=== PATIENT | male | born 1990 | race Caucasian/White ===

== ENCOUNTER → 2022-11-18 | Outpatient (CLI) | payer BC | LOC: CARDFS 14:55 | PROVIDERS: ATTEND Internal Medicine | DX: R00.2 Palpitations (principal); R07.89 Other chest pain | CPT/HCPCS: 93306 ==

== ENCOUNTER → 2022-11-19 | Outpatient (CLI) | payer BC | LOC: CARD 07:50 | PROVIDERS: ATTEND Nurse Practitioner Family | DX: R00.2 Palpitations (principal); R07.89 Other chest pain | CPT/HCPCS: 93225; 93226 ==

== ENCOUNTER 2023-03-23 07:57 | Outpatient (CLI) | payer BC | END 2023-03-23 08:30 | LOC: SLEEP 07:57 | PROVIDERS: ATTEND Internal Medicine Cardiovascular Disease | DX: G47.33 Obstructive sleep apnea (adult) (pediatric) (principal); R06.83 Snoring; G47.36 Sleep related hypoventilation in conditions classified elsewhere; I10 Essential (primary) hypertension | CPT/HCPCS: G0399 ==

== ENCOUNTER → 2023-03-30 | Outpatient (CLI) | payer BC ==
[2023-03-30 13:32] VITALS: BP_SYST 143
--- NOTE | 2023-03-30 13:32 | Cardiology Stress Test Report ---
Stress Test Report Date of Procedure/Referring: Date of Procedure: Mar 30, 2023 PCP Vinayak Royal Aprn Admitting Physician Admitting Physician: Attending Physician: Adrien Callejas MD Indications: CP Baseline Heart Rate: 70 Baseline Blood Pressure: Blood Pressure Systolic: 143 Baseline EKG: Baseline EK Summary/Conclusion: Summary: In summary, the patient started exercising with a baseline heart rate, blood pressure and EKG mentioned above Patient was able to exercise for a total of 8 minutes on Manas protocol, METs 88 Maximum heart rate 165 Maximum blood pressure 204/77 Stress EKG, Minimal nondiagnostic changes Recovery EKG , Return to baseline Conclusion: 1. Good exercise tolerance for a total of 8 minutes on Manas protocol, 9.7 METs, achieving 88 percent of maximum expected heart rate 2. Minimal nondiagnostic EKG changes with exercise returned to baseline during recovery 3. No arrhythmia was noted 4. Hypertensive response to exercise with peak blood pressure 204/77 return to baseline during recovery Copy Copies To 1: [facility] [place] MD Mar 30, 2023 13:32
== END ==
LOC: CARD 10:45
PROVIDERS: ATTEND Internal Medicine Cardiovascular Disease
DX: R07.9 Chest pain, unspecified (principal)
CPT/HCPCS: 93017